=== PATIENT | male | born 1990 | race African-American/Black ===

== ENCOUNTER 2018-05-28 17:12 | Emergency (ER) | payer MEDICAID, OTHER ==
[~2018-05-28] VITALS: Ht 180.3 cm; Wt 91.0 kg
[2018-05-28] MEDS ORDERED: WARF1TAB46 PO (17:19)
[2018-05-28] MEDS ORDERED: SODIUM CHLORIDE 0.9% 1,000 ML IV ONE (18:15)
[2018-05-28 18:37] LABS: BASOPHILS % 0.6 % (0.0-2.0); EOSINOPHILS % 1.7 % (0.0-5.0); HEMATOCRIT. 36.3 % (42.0-52.0); HEMOGLOBIN. 12.8 g/dL (14.0-18.0); LYMPHOCYTES % 21.6 % (20.0-50.0); MEAN CORPUSCULAR HEMOGLOBIN 29.8 pg (28.0-32.0); MEAN CORPUSCULAR VOLUME 84.6 fL (80.0-94.0); MEAN PLATELET VOLUME 7.5 fl (7.4-10.4); MONOCYTES % 7.2 % (2.0-8.0); NEUTROPHILS % 68.9 % (40.0-76.0); PLATELET 328 x1000/uL (130-400); RED BLOOD CELL COUNT 4.29 mill/uL (4.7-6.1); RED CELL DISTRIBUTION WIDTH 14.4 % (11.6-14.6)
[2018-05-28 18:39] LABS: CHLORIDE 105 mEq/L (98-107)
[2018-05-28] MEDS ORDERED: FUROSEMIDE 40MG/4ML VIAL IVP NR (19:30)
[2018-05-28] MEDS ORDERED: ASPIRIN 81MG TABLET PO NR (19:30)
[2018-05-28 21:38] LABS: INR 2.1; PROTHROMBIN TIME 20.5 sec (9.1-11.1)
[2018-05-29] MEDS ORDERED: DIPHENHYDRAMINE 50MG CAPSULE PO NR (00:15)
[2018-05-29] MEDS ORDERED: PANT40TA4 MT (08:45)
[2018-05-29] MEDS ORDERED: DICY10CA88 PO (08:45)
[2018-05-29] MEDS ORDERED: ECON15CR11 TP (08:45)
[2018-05-29] MEDS ORDERED: TCNYC15 TP (08:45)
[2018-05-29 09:45] VITALS: BP 111/61
[2018-05-29] MEDS ORDERED: PANTOPRAZOLE 40MG DR TABLET PO SCH (10:00)
[2018-05-29] MEDS ORDERED: DICYCLOMINE HCL 10MG CAPSULE PO SCH (10:00)
[2018-05-29] MEDS ORDERED: TRAZ-213 MT (10:31)
[2018-05-29] MEDS ORDERED: CLON0.5T MT (10:31)
[2018-05-29] MEDS ORDERED: LOPHC2 MT (10:31)
[2018-05-29] MEDS ORDERED: ZIPR60CA2 MT (10:31)
[2018-05-29] MEDS ORDERED: WARF-53 MT (10:31)
[2018-05-29] MEDS ORDERED: ASPI-1158 PO (10:31)
[2018-05-29] MEDS ORDERED: LEVO50TA8 MT (10:31)
[2018-05-29] MEDS ORDERED: DULO30CA2 MT (10:31)
[2018-05-29] MEDS ORDERED: GUAIFENESIN 200MG/10ML SUGAR FREE UDC PO PRN (11:00)
[2018-05-29] MEDS ORDERED: DOCUSATE SODIUM 100MG CAPSULE PO PRN (11:00)
[2018-05-29] MEDS ORDERED: MAGNESIUM/ALUMINUM HYDROXIDE/SIMETHICONE 30ML UDC PO PRN (11:00)
[2018-05-29] MEDS ORDERED: HYDROCODONE/ACETAMINOPHEN 5/325MG TABLET PO PRN (11:00)
[2018-05-29] MEDS ORDERED: ACETAMINOPHEN 325MG TABLET PO PRN (11:00)
[2018-05-29] MEDS ORDERED: DIPHENHYDRAMINE 50MG/ML VIAL IV PRN (11:00)
[2018-05-29] MEDS ORDERED: CLONAZEPAM 0.5MG TABLET PO PRN (11:00)
[2018-05-29] MEDS ORDERED: LORAZEPAM 0.5MG TABLET PO PRN (11:00)
[2018-05-29] MEDS ORDERED: ACETAMINOPHEN 650MG SUPP PR PRN (11:00)
[2018-05-29] MEDS ORDERED: IPRATROPIUM/ALBUTEROL 0.5-3(2.5)MG/3ML NEB INH PRN (11:00)
[2018-05-29] MEDS ORDERED: NA PHOS,M-B/NA PHOS,DI-BA ENEMA 118ML PR PRN (11:00)
[2018-05-29] MEDS ORDERED: CLONIDINE 0.1MG TABLET PO PRN (11:00)
[2018-05-29] MEDS ORDERED: ONDANSETRON HCL 4MG/2ML INJ IV PRN (11:00)
[2018-05-29] MEDS ORDERED: NYSTATIN/TRIAMCIN CREAM 15GM TOP SCH ×2 (17:00→17:15)
[2018-05-29] MEDS ORDERED: TRAZODONE HCL 100MG TABLET PO PRN (21:00)
[2018-05-30] MEDS ORDERED: PANTOPRAZOLE 40MG DR TABLET PO SCH (07:50)
[2018-05-30] MEDS ORDERED: ASPIRIN 81MG EC TABLET PO SCH ×2 (09:00→09:15)
[2018-05-30] MEDS ORDERED: LEVOTHYROXINE SODIUM 50MCG TABLET PO SCH ×2 (09:00→09:15)
[2018-05-30] MEDS ORDERED: METOPROL MT SCH (09:00)
[2018-05-30] MEDS ORDERED: HYDROCHLOROTHIAZIDE MT SCH (09:00)
[2018-05-30] MEDS ORDERED: DULOXETINE HCL 30MG DR CAPSULE PO SCH ×2 (09:00→09:15)
== END 2018-05-29 12:00 | disposition left against medical advice (07) ==
LOC: ER 17:28 → EDBEDREQTM 19:50 → EDBEDREQ 19:50 → SUPCPDRO 05-29 10:54 → ER 05-29 12:00 → CANRESERV 05-29 14:13 → ENRESERV 05-29 14:13 → CANBEDREQ 05-29 15:41
DX: R07.89 Other chest pain (principal); I11.0 Hypertensive heart disease with heart failure; I50.9 Heart failure, unspecified; J45.909 Unspecified asthma, uncomplicated; E03.9 Hypothyroidism, unspecified; E78.00 Pure hypercholesterolemia, unspecified; D64.9 Anemia, unspecified; F20.9 Schizophrenia, unspecified; D68.9 Coagulation defect, unspecified; E66.9 Obesity, unspecified; Z68.28 Body mass index [BMI] 28.0-28.9, adult; Z79.01 Long term (current) use of anticoagulants; Z95.2 Presence of prosthetic heart valve
CPT/HCPCS: 36415; 71045; 80053; 83605; 83880; 84484; 85025; 85610; 85730; 93005; 96361; 96374; 99285; J1940; J7030; Q0163